=== PATIENT | female | born 1980 ===

== ENCOUNTER 2025-07-28 06:25 | Day surgery (SDC) | payer BC, SELFPAY | END 2025-07-28 11:06 | disposition home or self-care (01) | LOC: GI 06:25 | PROVIDERS: ATTENDING PHYSICIAN Internal Medicine Gastroenterology | DX: R12 Heartburn (principal); R07.89 Other chest pain; K44.9 Diaphragmatic hernia without obstruction or gangrene; K22.89 Other specified disease of esophagus; K31.89 Other diseases of stomach and duodenum | CPT/HCPCS: 43239; 91035; 88305 ==